=== PATIENT | male | born 1960 | race Caucasian/White ===

== ENCOUNTER → 2019-01-06 | Emergency (ER) | payer OTHER ==
[~2019-01-06] VITALS: Ht 165.1 cm; Wt 104.3 kg
[~2019-01-06] MED LIST: KETOROLAC TROMETHAMINE INJ 30 MG/ML VIAL ONE; KETOROLAC TROMETHAMINE INJ 60 MG/2 ML VIAL IM ONE
--- NOTE | 2019-01-06 04:05 | NUR ---
PATIENT BROUGHT IN BY SELF, WITH CC: RIGHT SIDED SHOULDER PAIN 10/10 X 4 DAYS. PATIENT DENIES TRAUMA, NO OBVIOUS DEFORMITY NOTED AT SITE, NO OBVIOUS DEFORMITY NOTED. MD AT BEDSIDE FOR EVALUATION. PATIENT WITH FULL RANGE OF MOTION, LIMITED ONLY DUE TO PAIN.
--- NOTE | 2019-01-06 04:08 | NUR ---
PATIENT MEDICATED ORDERED, TORADOL 30MG IM TO LEFT SHOULDER, TOELRATED WELL.
[2019-01-06 04:10] VITALS: BP 149/78
--- NOTE | 2019-01-06 04:13 | NUR ---
Patient discharged to home in stable condition. Written and verbal after care instructions given. Patient verbalizes understanding of instruction.
== END | disposition home or self-care (01) ==
LOC: ER 03:37
DX: S43.491A Other sprain of right shoulder joint, initial encounter (principal); I10 Essential (primary) hypertension; Z98.890 Other specified postprocedural states; Z60.2 Problems related to living alone; X58.XXXA Exposure to other specified factors, initial encounter; Y93.89 Activity, other specified; Y92.89 Other specified places as the place of occurrence of the external cause; Y99.8 Other external cause status
CPT/HCPCS: 96372; 99283; J1885